=== PATIENT | male | born 1950 | race Hispanic/Latino ===

== ENCOUNTER 2025-03-24 09:14 | Outpatient (CLI) | payer MEDICARE | END 2025-03-24 09:15 | disposition home or self-care (01) | LOC: SCSMRI 09:14 | PROVIDERS: ATTEND Family Medicine | DX: M50.30 Other cervical disc degeneration, unspecified cervical region (principal); M48.02 Spinal stenosis, cervical region | CPT/HCPCS: 72141 ==